=== PATIENT | female | born 1970 | race Caucasian/White ===

== ENCOUNTER 2018-12-25 10:50 | Observation (INO) ==
[2018-12-25 11:25] LABS: Basophils # 0.1 K/mcL (0.0-0.2); Basophils % 0.8 %; Eosinophils # 0.1 K/mcL (0.0-0.6); Eosinophils % 0.8 %; Hematocrit 42.1 % (35.3-44.9); Hemoglobin 13.8 g/dL (11.5-15.4); Immature Granulocytes % 0.3 % (0-4); Lymphocytes # 2.2 K/mcL (0.6-4.6); Mean Corpuscular HGB Conc 32.8 g/dL (31.6-35.5); Mean Corpuscular Volume 91.5 fL (83.0-100.0); Mean Platelet Volume 8.9 fL (9.4-12.4); Monocytes # 0.5 K/mcL (0.0-1.3); Monocytes % 5.5 %; Neutrophils # 6.4 K/mcL (1.6-8.9); Platelet Count 503 K/mcL (140-400); Red Cell Distribution Width 13.3 % (11.5-14.5); Segmented Neutrophils % 68.6 %; White Blood Count 9.3 K/mcL (4.3-11.1)
--- NOTE | 2018-12-25 11:35 | Emergency Department Note ---
Disposition Clinical Impression: Anxiety, Delusions, Noncompliance with medication regimen Disposition: Admitted As Inpatient Condition: Good Referrals: NONE,PCP [Primary Care Provider] - Forms: ED Satisfaction Letter Time of Disposition: 15:29 Psych HPI - General Chief Complaint: ED Psychiatric Symptoms Stated Complaint: 1A Eval not SI/HI Time Seen by Provider: 12/25/18 10:54 Source: patient Mode of arrival: private vehicle Limitations: no limitations Nursing Notes Reviewed: Yes Vital Signs Reviewed: Yes - History of Present Illness HPI Narrative: This is a 48-year-old female with a history of anxiety/depression who presents with multiple complaints. The patient reports she has been off her medication since September. Family is present. She states that she feels like she is having worsening anxiety as well as racing thoughts. She denies suicidal or homicidal ideation. Family is concerned because she has been getting into people's cars thinking that they are hers. She was also seen at another facility one week ago and was admitted they believe for her low potassium. She denies any auditory or visual hallucinations. Family states that she was paranoid last night and banged on a neighbor's door at 3 AM thinking that someone was trying to get her. No other complaints. Pt complaint: anxiety History of similar episodes: Yes Improves with: none Worsens with: none Alleged intoxication: No Associated Psychiatric Symptoms: depression, racing thoughts Associated symptoms: Reports: denies other symptoms Traumatic symptoms: denies traumatic injury Treatments prior to arrival: none Self harm or harm to others: denies thoughts of harming self/others - Related Data Home Medications Medication Instructions Recorded Confirmed ALPRAZolam [Xanax 1 MG Tablet] 1 mg PO TID 12/25/18 12/25/18 Atorvastatin Calcium [Lipitor] 20 mg PO DAILY 12/25/18 12/25/18 Diphenhydramine HCl [Z-Sleep] 25 mg PO DAILY 12/25/18 12/25/18 Docusate [Colace] 100 mg PO DAILY 12/25/18 12/25/18 Doxepin HCl 150 mg PO HS 12/25/18 12/25/18 Escitalopram Oxalate 20 mg PO DAILY 12/25/18 12/25/18 Lactulose 10 gm PO DAILY 12/25/18 12/25/18 Metformin HCl [Fortamet] 500 mg PO DAILY 12/25/18 12/25/18 Methylphenidate HCl [Ritalin] 10 mg PO TID 12/25/18 12/25/18 Oxycodone HCl/Acetaminophen 5 - 325 mg PO Q6-8H PRN 12/25/18 12/25/18 [Percocet 7.5-325 mg Tablet] Propranolol HCl [Innopran Xl] 120 mg PO DAILY 12/25/18 12/25/18 Qsymia 7.5 mg-46 mg Capsule 7.5 - 46 mg PO DAILY 12/25/18 12/25/18 Rivaroxaban [Xarelto] 20 mg PO DAILY 12/25/18 12/25/18 Spironolactone [Aldactone] 50 mg PO DAILY 12/25/18 12/25/18 Topiramate [Topamax] 100 mg PO BID 12/25/18 12/25/18 Tramadol HCl [Ultram] 50 mg PO TID 12/25/18 12/25/18 Allergies Allergy/AdvReac Type Severity Reaction Status Date / Time Penicillins Allergy Rash Verified 12/25/18 10:54 All systems ED: reviewed and negative except as stated. Psychiatric: Reports: anxiety, depression. Denies: suicidal thoughts, homicidal thoughts, auditory hallucinations, visual hallucinations Past Medical History - Past Medical History Attestation: Yes The following information was validated with the patient. Source: patient Medical history: Reports: hypertension Psychiatric history: Reports: anxiety, bipolar, depression - Social History Smoking Status: Current every day smoker Smokeless Tobacco Status: No Alcohol use: Reports: none Drug use: Reports: none Physical Exam - General Limitations: no limitations General appearance: alert, in no apparent distress - Head Head exam: atraumatic, normocephalic, normal inspection - Eye Eye exam: Present: normal appearance - ENT ENT exam: normal exam - Neck Neck exam: Present: normal inspection - Chest Chest inspection: Present: normal inspection, symmetric chest wall rise - Respiratory Respiratory exam: Present: normal lung sounds bilaterally - Cardiovascular Cardiovascular exam: Present: regular rate, normal rhythm, irregular rhythm - Abdominal Exam Abdominal exam: Present: soft, Non-Tender. Absent: tenderness, distention, guarding, rigidity - Extremities Exam Extremities exam: Present: normal inspection, full ROM - Expanded Upper Extremity Exam Shoulder exam: Present: normal inspection, full ROM Arm exam: Present: normal inspection, full ROM Elbow exam: Present: normal inspection, full ROM Forearm/Wrist exam: Present: normal inspection, full ROM Hand exam: Present: normal inspection, full ROM - Expanded Lower Extremity Exam Hip/Pelvis exam: Present: normal inspection, full ROM Upper leg exam: Present: normal inspection, full ROM Knee exam: Present: normal inspection, full ROM Lower leg exam: Present: normal inspection, full ROM Ankle exam: Present: normal inspection, full ROM Foot/toe exam: Present: normal inspection, full ROM - Neurological Exam Neurological exam: Present: alert, other (Alert, tangential, requires frequent redirection. No focal deficits.) - Psychiatric Psychiatric exam: Present: anxious, other (Racing thoughts, tangential,). Absent: homicidal ideation, suicidal ideation - Skin Skin exam: Present: warm, dry, intact Course Course Narrative: Seen and examined. Patient will have labs for medical clearance for psychiatric evaluation. - Reevaluation(s) Reevaluation #1: Patient medically cleared. UDS w/ AL. 1A contacted at 12:10 for evaluation. Reevaluation #2: Patient evaluated by one a. At this point she disclose much more to them in that she has not been using her medications appropriately. She also did have her Ritalin prescribed and filled 6 days ago however she has no amphetamines in her urine. They are concerned that she could be in benzodiazepine withdrawal. She has received from numerous providers but most recently was in September. Nevertheless her heart rate is borderline tachycardic and given her symptoms plan to admit for medical clearance. Psychiatry will follow along in consultation. Given 0.5 g Xanax here. Vital Signs Temperature 99 F 12/25/18 10:52 Pulse Rate 95 12/25/18 10:52 Respiratory Rate 16 12/25/18 10:52 Blood Pressure 152/97 12/25/18 10:52 O2 Sat by Pulse Oximetry 99 12/25/18 10:52 Temperature 99 F 12/25/18 11:00 Pulse Rate 88 12/25/18 14:56 Respiratory Rate 18 12/25/18 14:56 Blood Pressure 163/104 12/25/18 14:56 O2 Sat by Pulse Oximetry 96 12/25/18 14:56 Oxygen Delivery Oxygen Delivery Room Air Psych - MDM Narrative Medical decision making narrative: 48-year-old female presenting with anxiety, depression and racing thoughts. The patient was medically cleared and evaluated by psychiatry. The car concern is that she may have an element of benzodiazepine withdrawal. She also appears to demonstrate medication noncompliance. For these reasons the patient is admitted to the hospitalist service for medical clearance for concern for benzodiazepine withdrawal - Lab Data Lab results reviewed: Yes I reviewed the patient's lab results. Result diagrams: 12/25/18 11:12 12/25/18 11:12 Lab Results 12/25/18 12/25/18 12/25/18 Range/Units 11:12 11:12 11:12 WBC 9.3 (4.3-11.1) K/mcL RBC 4.60 (3.82-4.97) M/mcL Hgb 13.8 (11.5-15.4) g/dL Hct 42.1 (35.3-44.9) % MCV 91.5 (83.0-100.0) fL MCH 30.0 (28.0-33.3) pg MCHC 32.8 (31.6-35.5) g/dL RDW 13.3 (11.5-14.5) % Plt Count 503 H (140-400) K/mcL MPV 8.9 L (9.4-12.4) fL Immature Gran % 0.3 (0-4) % Seg Neutrophils % 68.6 % Lymphocytes % 24.0 % Monocytes % 5.5 % Eosinophils % 0.8 % Basophils % 0.8 % Neutrophils # 6.4 (1.6-8.9) K/mcL Lymphocytes # 2.2 (0.6-4.6) K/mcL Monocytes # 0.5 (0.0-1.3) K/mcL Eosinophils # 0.1 (0.0-0.6) K/mcL Basophils # 0.1 (0.0-0.2) K/mcL Sodium 138 (136-145) mEq/L Potassium 3.4 L (3.5-5.1) mEq/L Chloride 105 (98-107) mEq/L Carbon Dioxide 23 (23-29) mEq/L BUN 15 (6-20) mg/dL Creatinine 0.79 (0.60-1.20) mg/dL Est GFR ( Amer) > 60 (> 60) Est GFR (Non-Af Amer) > 60 (> 60) BUN/Creatinine Ratio 19 (6-26) Glucose 142 H (70-105) mg/dL Calculated Osmolality 289 (280-300) Calcium 9.1 (8.6-10.3) mg/dL Ammonia 29 (16-53) mcmol/L Urine Color (Yellow) Urine Clarity (Clear) Urine pH (5.0-8.0) pH Units Ur Specific [place] (1.010-1.025) Urine Protein (Neg-Trace) mg/dL Urine Glucose (UA) (Normal) mg/dL Urine Ketones (Negative) mg/dL Urine Blood (Negative) Urine Nitrite (Negative) Urine Bilirubin (Negative) Urine Urobilinogen (Normal) mg/dL Ur Leukocyte Esterase (Negative) Urine Microscopic RBC (0-3) per hpf Urine Microscopic WBC (0-3) per hpf Ur Squamous Epith Cells (None-Few) per lpf Urine Bacteria (None-Few) per hpf Hyaline Casts (None-Few) per lpf Urine Test (Negative) Salicylates < 2.5 L (15.0-30.0) mg/dL Urine Opiates Screen (Vvlprd=944) ng/mL Ur Buprenorphine Scrn (Cutoff=5) ng/mL Acetaminophen < 10 L (10-20) mcg/mL Ur Barbiturates Screen (Rvnqkt=207) ng/mL Ur Phencyclidine Scrn (Cutoff=25) ng/mL Ur Amphetamines Screen (Jdofqd=6367) ng/mL U Benzodiazepines Scrn (Clorbj=135) ng/mL Urine Cocaine Screen (Cutoff= 300) ng/mL U Marijuana (THC) Screen (Cutoff = 50) ng/mL Ur Drug Screen Interp Ethyl Alcohol < 10 (Less than 10) mg/dL 12/25/18 12/25/18 12/25/18 Range/Units 11:34 11:39 11:39 WBC (4.3-11.1) K/mcL RBC (3.82-4.97) M/mcL Hgb (11.5-15.4) g/dL Hct (35.3-44.9) % MCV (83.0-100.0) fL MCH (28.0-33.3) pg MCHC (31.6-35.5) g/dL RDW (11.5-14.5) % Plt Count (140-400) K/mcL MPV (9.4-12.4) fL Immature Gran % (0-4) % Seg Neutrophils % % Lymphocytes % % Monocytes % % Eosinophils % % Basophils % % Neutrophils # (1.6-8.9) K/mcL Lymphocytes # (0.6-4.6) K/mcL Monocytes # (0.0-1.3) K/mcL Eosinophils # (0.0-0.6) K/mcL Basophils # (0.0-0.2) K/mcL Sodium (136-145) mEq/L Potassium (3.5-5.1) mEq/L Chloride (98-107) mEq/L Carbon Dioxide (23-29) mEq/L BUN (6-20) mg/dL Creatinine (0.60-1.20) mg/dL Est GFR ( Amer) (> 60) Est GFR (Non-Af Amer) (> 60) BUN/Creatinine Ratio (6-26) Glucose (70-105) mg/dL Calculated Osmolality (280-300) Calcium (8.6-10.3) mg/dL Ammonia (16-53) mcmol/L Urine Color Yellow (Yellow) Urine Clarity Clear (Clear) Urine pH 7.0 (5.0-8.0) pH Units Ur Specific [place] 1.018 (1.010-1.025) Urine Protein Negative (Neg-Trace) mg/dL Urine Glucose (UA) Normal (Normal) mg/dL Urine Ketones Negative (Negative) mg/dL Urine Blood Moderate H (Negative) Urine Nitrite Negative (Negative) Urine Bilirubin Negative (Negative) Urine Urobilinogen Normal (Normal) mg/dL Ur Leukocyte Esterase Small H (Negative) Urine Microscopic RBC 5-15 H (0-3) per hpf Urine Microscopic WBC 5-15 H (0-3) per hpf Ur Squamous Epith Cells Many H (None-Few) per lpf Urine Bacteria Moderate H (None-Few) per hpf Hyaline Casts None Seen (None-Few) per lpf Urine Test Negative (Negative) Salicylates (15.0-30.0) mg/dL Urine Opiates Screen Negative (Jpwlof=865) ng/mL Ur Buprenorphine Scrn Negative (Cutoff=5) ng/mL Acetaminophen (10-20) mcg/mL Ur Barbiturates Screen Negative (Fgzrgg=662) ng/mL Ur Phencyclidine Scrn Negative (Cutoff=25) ng/mL Ur Amphetamines Screen Negative (Jmivfy=2575) ng/mL U Benzodiazepines Scrn Negative (Uzsxzh=719) ng/mL Urine Cocaine Screen Negative (Cutoff= 300) ng/mL U Marijuana (THC) Screen Positive H (Cutoff = 50) ng/mL Ur Drug Screen Interp See Below Ethyl Alcohol (Less than 10) mg/dL Psychiatric Medical Clearance - Medical Clearance Checklist Medical History: No Social History Section defined Current Vitals: Last Vital Signs Temp 99 F 12/25/18 11:00 Pulse 88 12/25/18 14:56 Resp 18 12/25/18 14:56 BP 163/104 12/25/18 14:56 Pulse Ox 96 12/25/18 14:56 Psychiatric Lab Panel: Drug Levels and Toxicity 12/25/18 12/25/18 11:12 11:39 Urine Opiates Screen Negative Acetaminophen < 10 L Ur Barbiturates Screen Negative Ur Phencyclidine Scrn Negative Ur Amphetamines Screen Negative U Benzodiazepines Scrn Negative Urine Cocaine Screen Negative U Marijuana (THC) Screen Positive H Ethyl Alcohol < 10 Abnormal Labs: Abnormal lab results Plt Count 503 K/mcL (140-400) H 12/25/18 11:12 MPV 8.9 fL (9.4-12.4) L 12/25/18 11:12 Potassium 3.4 mEq/L (3.5-5.1) L 12/25/18 11:12 Glucose 142 mg/dL (70-105) H 12/25/18 11:12 Urine Blood Moderate (Negative) H 12/25/18 11:34 Ur Leukocyte Esterase Small (Negative) H 12/25/18 11:34 Urine Microscopic RBC 5-15 per hpf (0-3) H 12/25/18 11:34 Urine Microscopic WBC 5-15 per hpf (0-3) H 12/25/18 11:34 Ur Squamous Epith Cells Many per lpf (None-Few) H 12/25/18 11:34 Urine Bacteria Moderate per hpf (None-Few) H 12/25/18 11:34 Salicylates < 2.5 mg/dL (15.0-30.0) L 12/25/18 11:12 Acetaminophen < 10 mcg/mL (10-20) L 12/25/18 11:12 U Marijuana (THC) Screen Positive ng/mL (Cutoff = 50) H 12/25/18 11:39 Statement of Medical Clearance: I have evaluated the patient, reviewed diagnostic information, and certify that the patient's medical condition is sufficiently stable that transfer to the psychiatric unit does not pose a significant risk of deterioration. S.B.A.R. - S.B.A.R. Situation: Demographics, MOA Background: Presenting Complaint, Relevant PMH, Meds, & Allergies Assessment: Course and respsone to treatment, Exam Concerns, Patient/Family Expectation, Pertinant Lab Results Recommendation: Barrier(s) to disposition, Recommendation based on pending studies, treatments, or consults S.B.A.R. Report Given to: Hospitalist
[2018-12-25 11:44] LABS: Acetaminophen < 10 mcg/mL (10-20); BUN/Creatinine Ratio 19 (6-26); Blood Urea Nitrogen 15 mg/dL (6-20); Calcium 9.1 mg/dL (8.6-10.3); Carbon Dioxide 23 mEq/L (23-29); Chloride 105 mEq/L (98-107); Ethanol < 10 mg/dL (Less than 10); Glucose 142 mg/dL (70-105); Osmolality,Calculated 289 (280-300); Potassium 3.4 mEq/L (3.5-5.1); Salicylate < 2.5 mg/dL (15.0-30.0); Sodium 138 mEq/L (136-145); eGFR For African Americans > 60 (> 60); eGFR For Non-African Americans > 60 (> 60)
[2018-12-25 11:53] LABS: Bilirubin,Urine Negative (Negative); Blood,Urine Moderate (Negative); Clarity,Urine Clear (Clear); Color,Urine Yellow (Yellow); Glucose,Urine (UA) Normal (Normal); Ketones,Urine Negative (Negative); Leukocyte Esterase,Urine Small (Negative); Nitrite,Urine Negative (Negative); Protein,Urine Negative (Neg-Trace); Specific Gravity,Urine 1.018 (1.010-1.025); Urobilinogen,Urine Normal (Normal)
[2018-12-25 11:56] LABS: Bacteria,Urine Moderate per hpf (None-Few); Hyaline Casts,Urine None Seen per lpf (None-Few); Squamous Epithelial Cell,Urine Many per lpf (None-Few)
[2018-12-25 12:04] LABS: Amphetamine Screen,Urine Negative ng/mL (Cutoff=1000); Barbiturate Screen,Urine Negative ng/mL (Cutoff=200); Benzodiazepines Screen,Urine Negative ng/mL (Cutoff=200); Cannabinoid Screen,Urine Positive ng/mL (Cutoff = 50); Cocaine Screen,Urine Negative ng/mL (Cutoff= 300); Opiate Screen,Urine Negative ng/mL (Cutoff=300); Phencyclidine Screen,Urine Negative ng/mL (Cutoff=25)
[2018-12-25] MEDS ORDERED: ALPRAZolam 0.5 MG TABLET PO ONE (13:27)
[2018-12-25] MEDS ORDERED: Nicotine 14 MG PATCH.TD24 TD ONE (14:57)
--- NOTE | 2018-12-25 17:07 | Internal Med History&Physical ---
Date of Encounter: 12/25/18 Time of Encounter: 16:59 Internal Medicine - H&P: HPI Chief complaint: Patient not acting herself Admitted From: Home History of present illness: Ms. Ryan Guthrie is a 48 year old female with a past medical history of DVT (after ankle surgery some years ago. Took Xarelto which was discontinued by her PCP) ,prediabetes, fibromyalgia, ADHD, anxiety, depression and insomnia. She was brought in by her family with concerns of her not acting herself in the last 2 weeks. Patient is unaware of family's concerns and states she wants to just get back to normal and get some rest. She admits that she was on medications for ADHD and anxiety (Ritalin and clonazepam) which she stopped taking in September so she could focus on weight loss. Family states that since then patient has been sleeping very little and is very talkative. Within the last 2 weeks she has been doing more things including beginning to a stranger's car thinking it was hers. Patient however states that she "just wanted to go really fast" and was aware the car was not hers. She has been on disability for the last 20 years on account of fibromyalgia, chronic low back pain, cervical spine surgery and ankle surgery. She admits that she has been given Abilify by a psychiatrist before but she is unsure of the indication. Patient admits history of social illicit drug and recently smoked some marijuana. She is also currently an every day cigarette smoker. Patient states that she is very happy but became tearful on our encounter when his family stated that she was not the person they used to know. She denies fever, chills, headaches, dysuria and frequency. Past Med Surg Social Fam HX - Past Medical History Medical history: hypertension Psychiatric history: anxiety, bipolar, depression - Social History Smoking Status: Current every day smoker Smokeless Tobacco Status: No Alcohol use: none Drug use: marijuana, methamphetamine (Last use was many years ago on her wedding night.) Occupational status: unemployed (On disability) Current living situation: Home Activity Level: Independent ambulation - Additional Family History Additional family history: Reviewed and noncontributory. Internal Medicine - H&P: Meds ALPRAZolam [Xanax 1 MG Tablet] 1 mg PO TID 12/25/18 [History] Atorvastatin Calcium [Lipitor] 20 mg PO DAILY 12/25/18 [History] Diphenhydramine HCl [Z-Sleep] 25 mg PO DAILY 12/25/18 [History] Docusate [Colace] 100 mg PO DAILY 12/25/18 [History] Doxepin HCl 150 mg PO HS 12/25/18 [History] Escitalopram Oxalate 20 mg PO DAILY 12/25/18 [History] Lactulose 10 gm PO DAILY 12/25/18 [History] Metformin HCl [Fortamet] 500 mg PO DAILY 12/25/18 [History] Methylphenidate HCl [Ritalin] 10 mg PO TID 12/25/18 [History] Oxycodone HCl/Acetaminophen [Percocet 7.5-325 mg Tablet] 5 - 325 mg PO Q6-8H PRN 12/25/18 [History] Propranolol HCl [Innopran Xl] 120 mg PO DAILY 12/25/18 [History] Qsymia 7.5 mg-46 mg Capsule 7.5 - 46 mg PO DAILY 12/25/18 [History] Rivaroxaban [Xarelto] 20 mg PO DAILY 12/25/18 [History] Spironolactone [Aldactone] 50 mg PO DAILY 12/25/18 [History] Topiramate [Topamax] 100 mg PO BID 12/25/18 [History] Tramadol HCl [Ultram] 50 mg PO TID 12/25/18 [History] Allergy/AdvReac Type Severity Reaction Status Date / Time Penicillins Allergy Rash Verified 12/25/18 10:54 All Systems PM: A 10-system review of systems was performed and is negative for pertinent findings except as documented above in the HPI. Review of systems: GENERAL: No fever or chills HEENT: No rhinorrhea, No sore throat, No ear pain or discharge, No dysphagia or odynophagia PULMONARY: No cough, No chest pain, No Sputum production, No dyspnea on exertion CARDIOVASCULAR: No chest pain, no palpitations, No shortness of breath, No PND, No orthopnea GASTROINTESTINAL: No abdominal pain, No nausea, No vomiting, No constipation, No DIARRHEA, No hematemesis, No hematochezia MUSKULOSKELETAL: No edema, No swelling, No pain INTEGUMENTARY: No new skin lesions NERVOUS SYSTEM: No Dizziness, No weakness, No slurred speech, No diplopia or blurred/ loss vision, No numbness, No tinglng sensation. PSYCHE: Denies homicidal and suicidal ideations - Constitutional Vitals: Temp Pulse Resp BP Pulse Ox 37.2 C 88 18 163/104 96 12/25/18 11:00 12/25/18 14:56 12/25/18 14:56 12/25/18 14:56 12/25/18 14:56 Exam: GENERAL: Not in distress. Alert and Oriented. HEENT: EOMI, PERRLA MOUTH: Dry oral mucosa NECK:No JVD, No lymph nodes. CHEST AND LUNGS: Normal breath sounds, no wheezes or crackles HEART: S1 and S2 normal, no murmurs ABDOMEN: Soft, nontender, no organomegaly SKIN: Normal color, no rashes, no lesions EXTREMITIES: No deformity, no edema, no tenderness, no joint swelling or clubbing NEUROLOGICAL: Normal cognition, normal motor and sensory exam. PSYCHE: Patient with an expansive mood and racing thoughts but does not seem delusional and has insight into the fact that she is not herself. Internal Med - H&P Results - Labs CBC & Chem 7: 12/25/18 11:12 12/25/18 11:12 Labs: Short CBC 12/25/18 Range/Units 11:12 WBC 9.3 (4.3-11.1) K/mcL Hgb 13.8 (11.5-15.4) g/dL Hct 42.1 (35.3-44.9) % Plt Count 503 H (140-400) K/mcL Neutrophils # 6.4 (1.6-8.9) K/mcL BMP 12/25/18 11:12 Sodium 138 Potassium 3.4 L Chloride 105 Carbon Dioxide 23 BUN 15 Creatinine 0.79 Glucose 142 H Calcium 9.1 Urine 12/25/18 Range/Units 11:34 Urine Color Yellow (Yellow) Urine Clarity Clear (Clear) Urine pH 7.0 (5.0-8.0) pH Units Ur Specific [place] 1.018 (1.010-1.025) Urine Protein Negative (Neg-Trace) mg/dL Urine Glucose (UA) Normal (Normal) mg/dL - Assessment and Plan (1) Bipolar 1 disorder, manic, mild Current Visit: Yes Status: Acute Assessment and plan: Patient has an expansive mood is talkative and has not been sleeping. Urine toxicology positive for marijuana. Patient admits last prescription benzodiazepine or Reglan use was in September 2018. I believe patient most of patient's symptoms are related to a mood disorder and not medications or an organic pathology. Psychiatry consulted (2) Prediabetes Current Visit: Yes Status: Acute Assessment and plan: We will hold metformin during inpatient stay. Check A1c (3) Anxiety Current Visit: Yes Status: Acute Assessment and plan: Psych on consult (4) Hyperlipidemia Current Visit: Yes Status: Acute Assessment and plan: Continue statins Qualifiers: Hyperlipidemia type: mixed hyperlipidemia Qualified Code(s): E78.2 - Mixed hyperlipidemia - Time Spent With Patient Total time spent is greater than 50% in coordination of care (as documented) at patient's floor/unit and/or counseling patient:
[2018-12-25] MEDS ORDERED: Naloxone 0.4 MG/ML INJ IVP PRN (17:25)
[2018-12-25] MEDS ORDERED: Haloperidol Lactate 5 MG/ML VIAL IVP ONE (20:25)
[2018-12-25] MEDS ORDERED: *HR* Promethazine 25 MG/ML VIAL IVP ONE (20:25)
[2018-12-25] MEDS ORDERED: *HR* LORazepam 2 MG/ML VIAL IVP PRN ×3 (22:43)
[2018-12-26 04:18] LABS: Basophils # 0.1 K/mcL (0.0-0.2); Basophils % 0.9 %; Eosinophils # 0.1 K/mcL (0.0-0.6); Eosinophils % 1.6 %; Hemoglobin 13.8 g/dL (11.5-15.4); Immature Granulocytes % 0.1 % (0-4); Lymphocytes # 2.5 K/mcL (0.6-4.6); Lymphocytes % 35.3 %; Mean Corpuscular HGB Conc 32.1 g/dL (31.6-35.5); Mean Corpuscular Hemoglobin 29.9 pg (28.0-33.3); Mean Corpuscular Volume 93.3 fL (83.0-100.0); Monocytes # 0.5 K/mcL (0.0-1.3); Monocytes % 7.3 %; Neutrophils # 3.9 K/mcL (1.6-8.9); Platelet Count 489 K/mcL (140-400); Red Blood Count 4.61 M/mcL (3.82-4.97); Red Cell Distribution Width 13.4 % (11.5-14.5); Segmented Neutrophils % 54.8 %
[2018-12-26 04:40] LABS: BUN/Creatinine Ratio 20 (6-26); Blood Urea Nitrogen 17 mg/dL (6-20); Calcium 9.2 mg/dL (8.6-10.3); Carbon Dioxide 23 mEq/L (23-29); Chloride 105 mEq/L (98-107); Glucose 92 mg/dL (70-105); Osmolality,Calculated 287 (280-300); Potassium 3.7 mEq/L (3.5-5.1); Sodium 138 mEq/L (136-145); eGFR For African Americans > 60 (> 60); eGFR For Non-African Americans > 60 (> 60)
--- NOTE | 2018-12-26 06:52 | Event Note ---
Date of Encounter: 12/25/18 Time of Encounter: 20:13 Alerted by patient's nurse EDISON Houston that patient is a 48-year-old female here for a 1A consult. Patient reported to the nurse that she was withdrawing from nicotine and stating the 14 mg patch was not working. Patient was tearful stating she also could not sleep. Went to see patient who was crying in bed and appeared to be in a manic-type state. I ordered a 21 mg nicotine patch and discussed giving the patient Haldol and Phenergan which she was amenable to. Alerted by nurse at 20:41 the patient was now wanting to leave and was wanting to call her . Patient is not currently pink slipped. Nurse instructed to call 1A and speak to the psychiatrist on-call. 1A nurse discussed the patient with me stating that he had spoken to her for some time and she was now calmer and agreed to stay. Patient's nurse instructed to administer Haldol and Phenergan which I discussed with Dr. Garvey who was the psychiatrist on-call. Dr. Garvey agreeable to this plan and requested B-CIWA be ordered for the pt. d/t her apparent benzodiazepine withdrawal. CIWA scale ordered. Nurse instructed to continue monitoring the patient very closely and alert me immediately of any adverse changes.
[2018-12-26] MEDS ORDERED: Nicotine 21 MG PATCH.TD24 TD SCH (09:00)
[2018-12-26 09:20] LABS: Estimated Average Glucose 123 mg/dl
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
[2018-12-26] MEDS ORDERED: Nicotine 14 MG PATCH.TD24 TD ONE (13:54)
[2018-12-26 15:26] VITALS: BP 145/76
--- NOTE | 2018-12-26 16:39 | Discharge Summary ---
- NOTES TO OUTPATIENT PROVIDER Notes to Outpatient Provider: Patient was admitted for anxiety and acute psychosis likely due to substance abuse. Patient's had workup done which did not find any organic cause for her symptoms. Psychiatry consult was placed. Patient to follow-up with psychiatry outpatient and to the outpatient rehabi litation. Resources for outpatient rehabilitation will be given to the patient on discharge. Discussed with clinical science consultant, nurse and health and social care teacher. We will discharge patient on hydroxyzine as needed for anxiety. Date of Encounter: 12/26/18 Time of Encounter: 16:37 - Discharge Diagnosis (1) Bipolar 1 disorder, manic, mild Priority: Primary Status: Acute (2) Prediabetes Priority: Secondary Status: Acute (3) Anxiety Priority: Secondary Status: Acute (4) Hyperlipidemia Priority: Secondary Status: Acute Qualifiers: Hyperlipidemia type: unspecified Qualified Code(s): E78.5 - Hyperlipidemia, unspecified Hospital course: Ms. Ryan Guthrie is a 48 year old female was admitted for anxiety and acute psychosis likely due to substance abuse. Patient's had workup done which did not find any organic cause for her symptoms. Psychiatry consult was placed. Patient to follow-up with psychiatry outpatient and to the outpatient rehabilitation. Resources for outpatient rehabilitation will be given to the patient on discharge. Discussed with clinical science consultant, nurse and health and social care teacher. We will discharge patient on hydroxyzine as needed for anxiety. Discharge discussed with: patient, nurse, social work, case management, clinical science consultant - Time Spent with Patient Total time spent providing and/or coordinating discharge services: 45 Time spent: Greater than 30 minutes - Discharge Medications Prescriptions: New HydrOXYzine [Atarax] 50 mg PO Q6H PRN #28 tablet PRN Reason: Anxiety Continued Topiramate [Topamax] 100 mg PO BID Spironolactone [Aldactone] 50 mg PO DAILY Docusate [Colace] 100 mg PO DAILY Metformin HCl [Fortamet] 500 mg PO DAILY Atorvastatin Calcium [Lipitor] 20 mg PO DAILY Oxycodone HCl/Acetaminophen [Percocet 7.5-325 mg Tablet] 5 - 325 mg PO Q6-8H PRN PRN Reason: Pain Qsymia 7.5 mg-46 mg Capsule 7.5 - 46 mg PO DAILY Tramadol HCl [Ultram] 50 mg PO TID Rivaroxaban [Xarelto] 20 mg PO DAILY Methylphenidate HCl [Ritalin] 10 mg PO TID Diphenhydramine HCl [Z-Sleep] 25 mg PO DAILY Doxepin HCl 150 mg PO HS Lactulose 10 gm PO DAILY Discontinued ALPRAZolam [Xanax 1 MG Tablet] 1 mg PO TID Escitalopram Oxalate 20 mg PO DAILY Propranolol HCl [Innopran Xl] 120 mg PO DAILY Home Medications: Atorvastatin Calcium [Lipitor] 20 mg PO DAILY 12/25/18 [History] Diphenhydramine HCl [Z-Sleep] 25 mg PO DAILY 12/25/18 [History] Docusate [Colace] 100 mg PO DAILY 12/25/18 [History] Doxepin HCl 150 mg PO HS 12/25/18 [History] Lactulose 10 gm PO DAILY 12/25/18 [History] Metformin HCl [Fortamet] 500 mg PO DAILY 12/25/18 [History] Methylphenidate HCl [Ritalin] 10 mg PO TID 12/25/18 [History] Oxycodone HCl/Acetaminophen [Percocet 7.5-325 mg Tablet] 5 - 325 mg PO Q6-8H PRN 12/25/18 [History] Qsymia 7.5 mg-46 mg Capsule 7.5 - 46 mg PO DAILY 12/25/18 [History] Rivaroxaban [Xarelto] 20 mg PO DAILY 12/25/18 [History] Spironolactone [Aldactone] 50 mg PO DAILY 12/25/18 [History] Topiramate [Topamax] 100 mg PO BID 12/25/18 [History] Tramadol HCl [Ultram] 50 mg PO TID 12/25/18 [History] HydrOXYzine [Atarax] 50 mg PO Q6H PRN #28 tablet 12/26/18 [Rx] Allergies/Adverse Reactions: Allergy/AdvReac Type Severity Reaction Status Date / Time Penicillins Allergy Rash Verified 12/25/18 10:54 Date of admission: 12/25/18 16:45 Primary care physician: PCP NONE Consults: 12/25/18 14:30 Consult to Psychiatry [CONS] Stat Consulting Provider: Psychiatry Satin Reason consult: Other 12/25/18 22:43 Consult to Manager Air [CONS] Routine Reason for SW Consult: Benzodiazepine abuse Discharging clinician: Carlos Holbrook - Constitutional Vitals: Temp Pulse Resp BP Pulse Ox 98.7 F 110 20 145/76 98 12/26/18 15:24 12/26/18 15:24 12/26/18 15:24 12/26/18 15:24 12/26/18 15:24 General appearance: Present: cooperative, A&O X 3 Exam: GENERAL: Not in distress. Alert and Oriented. HEENT: EOMI, PERRLA MOUTH: Dry oral mucosa NECK:No JVD, No lymph nodes. CHEST AND LUNGS: Normal breath sounds, no wheezes or crackles HEART: S1 and S2 normal, no murmurs ABDOMEN: Soft, nontender, no organomegaly SKIN: Normal color, no rashes, no lesions EXTREMITIES: No deformity, no edema, no tenderness, no joint swelling or clubbing NEUROLOGICAL: Normal cognition, normal motor and sensory exam. PSYCHE: Patient with an expansive mood and racing thoughts but does not seem delusional and has insight into the fact that she is not herself. - Patient Status Disposition: Home, Self-Care Condition: Good Overall status at discharge: patient is progressing back to baseline - Discharge Instructions Follow Up With: Roselyn Barbosa [Partnered Physician] - 01/01/19 8:00 am NONE,PCP [Primary Care Provider] - - Diet and Activity Activity: increase activity as tolerated Diet: low salt diet
== END 2018-12-26 19:40 | disposition home or self-care (01) ==
LOC: SUATTDRO → EMEROOARM 10:50 → 3BNU 10:50 → SUATTDRO 16:45 → 3BNU 17:25
PROVIDERS: ADMIT Internal Medicine; ATTEND Family Medicine